=== PATIENT | male | born 1980 | race Caucasian/White ===

== ENCOUNTER 2017-02-17 05:26 | Emergency (ER) | payer BC ==
[~2017-02-17] VITALS: Ht 172.7 cm; Wt 77.0 kg
[2017-02-17 05:27] VITALS: BP 131/73; PULSE 78; RESP 15; TEMP 98.5; O2SAT 100
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
[2017-02-17] MEDS ORDERED: PROPARACAINE HCL 0.5% OPHT SOLN 15 ML BTL LEFT EYE ONE (05:45)
[2017-02-17] MEDS ORDERED: ERYTHROMYCIN 0.5% OPTH OINT 3.5 GM TUBO RIGHT EYE ONE (05:45)
[2017-02-17] MEDS ORDERED: ERYTOIN10 RIGHT EYE (05:52)
== END 2017-02-17 05:59 | disposition home or self-care (01) ==
LOC: NEPD 05:26
DX: S05.01XA Injury of conjunctiva and corneal abrasion without foreign body, right eye, initial encounter (principal); H10.31 Unspecified acute conjunctivitis, right eye; W50.4XXA Accidental scratch by another person, initial encounter
CPT/HCPCS: 99283